=== PATIENT | male | born 1960 | race Caucasian/White ===

== ENCOUNTER 2025-07-05 09:02 | Outpatient (CLI) | payer SELFPAY | END 2025-07-05 09:03 | disposition home or self-care (01) | LOC: SCSULT 09:02 | PROVIDERS: ATTEND Internal Medicine Nephrology | DX: I12.9 Hypertensive chronic kidney disease with stage 1 through stage 4 chronic kidney disease, or unspecified chronic kidney disease (principal); N18.30 Chronic kidney disease, stage 3 unspecified | CPT/HCPCS: 76770 ==